=== PATIENT | female | born 1970 | race Caucasian/White ===

== ENCOUNTER → 2016-09-22 | Outpatient (CLI) | payer BC | LOC: MOB LAB 10:56 | PROVIDERS: ATTEND Physician Assistant Medical | DX: R10.84 Generalized abdominal pain (principal); R31.9 Hematuria, unspecified | CPT/HCPCS: 87088 ==

== ENCOUNTER → 2016-09-24 | Outpatient (CLI) | payer BC | LOC: MOB LAB 13:57 | PROVIDERS: ATTEND Physician Assistant Medical | DX: R10.84 Generalized abdominal pain (principal) | CPT/HCPCS: 87088 ==